=== PATIENT | male | born 1960 | race African-American/Black ===

== ENCOUNTER 2020-08-12 11:20 | Inpatient (IN) ==
[2020-08-12] MEDS ORDERED: Morphine Sulfate 2 MG/ML SYRINGE IVP ONE (11:35)
[2020-08-12] MEDS ORDERED: 0.9 % Sodium Chloride 1,000 ML IVC ONE (11:35)
[2020-08-12] MEDS ORDERED: Ondansetron 4 MG/2 ML VIAL IVP ONE (11:35)
[2020-08-12 11:57] LABS: Immature Granulocytes % 0.3 % (0-4)
[2020-08-12 11:58] LABS: Basophils % 0.2 %; Eosinophils % 0.4 %; Hematocrit 43.3 % (37.5-50.1); Hemoglobin 12.9 g/dL (12.9-16.9); Immature Platelets 10.9 % (1.1-6.1); Lymphocytes # 2.2 K/mcL (0.6-4.6); Lymphocytes % 20.6 %; Mean Corpuscular HGB Conc 29.8 g/dL (31.6-35.5); Mean Corpuscular Hemoglobin 20.3 pg (28.0-33.3); Mean Corpuscular Volume 68.2 fL (83.0-100.0); Monocytes % 8.9 %; Neutrophils # 7.5 K/mcL (1.6-8.9); Platelet Count 177 K/mcL (140-400); Red Blood Count 6.35 M/mcL (4.19-5.50); Segmented Neutrophils % 69.6 %; White Blood Count 10.8 K/mcL (4.3-11.1)
[2020-08-12 12:14] LABS: Platelet Estimate Normal (Normal)
[2020-08-12 13:14] LABS: Alanine Aminotransferase 65 Units/L (7-52); Albumin 4.6 g/dL (3.5-5.7); Albumin/Globulin Ratio 1.1 (1.1-2.2); Alkaline Phosphatase 85 Units/L (34-104); Amylase 64 Units/L (29-103); Aspartate Amino Transferase 56 Units/L (13-39); BUN/Creatinine Ratio 18 (6-26); Bilirubin,Indirect 0.5 mg/dL (0.0-1.0); Bilirubin,Total 0.5 mg/dL (0.3-1.0); Blood Urea Nitrogen 20 mg/dL (8-23); Carbon Dioxide 23 mEq/L (23-29); Chloride 103 mEq/L (98-107); Globulin 4.1 g/dL (2.4-3.5); Glucose 109 mg/dL (70-105); Lipase 9 Units/L (11-82); Osmolality,Calculated 293 (280-300); Potassium 4.5 mEq/L (3.5-5.1); Sodium 140 mEq/L (136-145); Total Protein 8.7 g/dL (6.4-8.9); eGFR For African Americans > 60 (> 60); eGFR For Non-African Americans > 60 (> 60)
[2020-08-12] MEDS ORDERED: Isovue-370 500 ML BOTTLE IVP ONE (13:27)
[2020-08-12 13:47] LABS: Amorphous Sediment,Urine Few per hpf (None-Few); Bacteria,Urine Few per hpf (None-Few); Bilirubin,Urine Negative (Negative); Blood,Urine Negative (Negative); Clarity,Urine Clear (Clear); Color,Urine Yellow (Yellow); Glucose,Urine (UA) Normal (Normal); Hyaline Casts,Urine Few per lpf (None Seen); Ketones,Urine Trace mg/dL (Negative); Leukocyte Esterase,Urine Small (Negative); Mucus,Urine Few per lpf (None-Few); Nitrite,Urine Negative (Negative); PH,Urine 7.5 pH Units (5.0-8.0); Protein,Urine 70 mg/dL (Neg-Trace); RBC,Urine 0-3 per hpf (0-3); Specific Gravity,Urine > 1.030 (1.010-1.025); Squamous Epithelial Cell,Urine Few per hpf (None-Few); Urobilinogen,Urine Normal (Normal)
[2020-08-12] MEDS ORDERED: *HR* HYDROmorphone (PF) 1 MG/ML SYRINGE IVP ONE (13:54)
[2020-08-12] MEDS ORDERED: Pantoprazole 40 MG VIAL IVP ONE (14:18)
[2020-08-12] MEDS ORDERED: Mag Hydrox/Al Hydrox/Simeth 30 ML UDC PO PRN (15:33)
[2020-08-12] MEDS ORDERED: Naloxone 0.4 MG/ML INJ IVP PRN (15:33)
[2020-08-12] MEDS ORDERED: Ondansetron 4 MG/2 ML VIAL IVP PRN (15:33)
[2020-08-12] MEDS ORDERED: Dextrose Gel 15 GM/37.5 ML TUBE PO PRN ×2 (15:39)
[2020-08-12] MEDS ORDERED: *HR* Dextrose 50 % in Water (Vial) 50 ML VIAL IVP PRN (15:39)
[2020-08-12] MEDS ORDERED: D5% in Water 1,000 ML IVC PRN (15:39)
[2020-08-12] MEDS ORDERED: Ringers Solution, Lactated 1,000 ML IVC SCH (15:45)
[2020-08-12] MEDS ORDERED: hydrOXYzine pamoate 25 MG CAPSULE PO PRN (16:27)
[2020-08-12] MEDS: Insulin LISPRO 300 UNITS/3 ML VIAL SQ SCH (17:04)
[2020-08-12] MEDS: Budesonide/Formoterol 80/4.5 1 PUFF INH IH SCH (20:57)
[2020-08-13 01:15] LABS: Hematocrit 39.1 % (37.5-50.1); Mean Corpuscular HGB Conc 28.9 g/dL (31.6-35.5); Mean Corpuscular Hemoglobin 20.1 pg (28.0-33.3); Segmented Neutrophils % 66.8 %
[2020-08-13 01:17] LABS: Basophils % 0.1 %; Eosinophils # 0.1 K/mcL (0.0-0.6); Eosinophils % 0.8 %; Hemoglobin 11.3 g/dL (12.9-16.9); Immature Granulocytes % 0.3 % (0-4); Immature Platelets 11.3 % (1.1-6.1); Lymphocytes # 1.8 K/mcL (0.6-4.6); Lymphocytes % 21.2 %; Mean Corpuscular Volume 69.6 fL (83.0-100.0); Monocytes # 0.9 K/mcL (0.0-1.3); Monocytes % 10.8 %; Neutrophils # 5.8 K/mcL (1.6-8.9); Platelet Count 157 K/mcL (140-400); Red Blood Count 5.62 M/mcL (4.19-5.50); Red Cell Distribution Width 17.8 % (11.5-14.5); White Blood Count 8.7 K/mcL (4.3-11.1)
[2020-08-13 01:18] LABS: INR 1.2; Prothrombin Time 13.9 Seconds (9.4-12.1)
[2020-08-13 01:34] LABS: BUN/Creatinine Ratio 16 (6-26); Blood Urea Nitrogen 17 mg/dL (8-23); Calcium 9.2 mg/dL (8.6-10.3); Carbon Dioxide 28 mEq/L (23-29); Chloride 104 mEq/L (98-107); Glucose 125 mg/dL (70-105); Osmolality,Calculated 291 (280-300); Potassium 3.8 mEq/L (3.5-5.1); Sodium 139 mEq/L (136-145); eGFR For African Americans > 60 (> 60); eGFR For Non-African Americans > 60 (> 60)
[2020-08-13 02:23] LABS: Platelet Estimate Normal (Normal)
[2020-08-13] MEDS ORDERED: *HR* Promethazine 25 MG/ML VIAL IVP ONE (04:03)
[2020-08-13 04:22] LABS: Estimated Average Glucose 146 mg/dl
[2020-08-13] MEDS: Budesonide/Formoterol 80/4.5 1 PUFF INH IH SCH ×2 (07:34→20:13)
[2020-08-13] MEDS: Insulin LISPRO 300 UNITS/3 ML VIAL SQ SCH ×3 (07:38→16:43)
[2020-08-13] MEDS ORDERED: Pantoprazole 40 MG VIAL IVP SCH (09:00)
[2020-08-13] MEDS ORDERED: Famotidine 20 MG/2 ML VIAL IVP ONE (09:35)
[2020-08-13] MEDS ORDERED: *HR* Propofol 200 MG/20 ML VIAL IVP ONE (10:24)
[2020-08-13] MEDS ORDERED: Lidocaine -MPF 2% 2 ML VIAL ONE (10:24)
[2020-08-13] MEDS ORDERED: *HR* PHENYLEPHRINE 1,000 MCG/10 ML SYRINGE IVP ONE (14:23)
[2020-08-13] MEDS ORDERED: Dexamethasone 4 MG/ML VIAL ONE (14:23)
[2020-08-13] MEDS: Magic Mouthwash 10 ML UD Cup PO SCH (17:09)
[2020-08-13] MEDS: Pantoprazole 40 MG VIAL IVP SCH (21:25)
[2020-08-14 01:20] LABS: Basophils % 0.2 %; Hemoglobin 10.5 g/dL (12.9-16.9); Immature Granulocytes % 0.2 % (0-4); Segmented Neutrophils % 52.9 %
[2020-08-14 01:22] LABS: Eosinophils # 0.1 K/mcL (0.0-0.6); Eosinophils % 2.2 %; Hematocrit 35.4 % (37.5-50.1); Immature Platelets 9.5 % (1.1-6.1); Lymphocytes # 1.8 K/mcL (0.6-4.6); Lymphocytes % 32.5 %; Mean Corpuscular HGB Conc 29.7 g/dL (31.6-35.5); Mean Corpuscular Hemoglobin 20.7 pg (28.0-33.3); Mean Corpuscular Volume 69.7 fL (83.0-100.0); Monocytes # 0.7 K/mcL (0.0-1.3); Neutrophils # 2.9 K/mcL (1.6-8.9); Platelet Count 139 K/mcL (140-400); Red Blood Count 5.08 M/mcL (4.19-5.50); White Blood Count 5.5 K/mcL (4.3-11.1)
[2020-08-14 01:38] LABS: BUN/Creatinine Ratio 13 (6-26); Blood Urea Nitrogen 13 mg/dL (8-23); Calcium 8.4 mg/dL (8.6-10.3); Carbon Dioxide 23 mEq/L (23-29); Chloride 107 mEq/L (98-107); Glucose 93 mg/dL (70-105); Osmolality,Calculated 284 (280-300); Potassium 3.7 mEq/L (3.5-5.1); Sodium 137 mEq/L (136-145); eGFR For African Americans > 60 (> 60); eGFR For Non-African Americans > 60 (> 60)
[2020-08-14 02:01] LABS: Platelet Estimate Normal (Normal)
[2020-08-14] MEDS: Budesonide/Formoterol 80/4.5 1 PUFF INH IH SCH ×2 (07:21→19:46)
[2020-08-14] MEDS: Pantoprazole 40 MG VIAL IVP SCH ×2 (09:00→21:17)
[2020-08-14] MEDS: Magic Mouthwash 10 ML UD Cup PO SCH ×3 (09:01→16:11)
[2020-08-14] MEDS: Insulin LISPRO 300 UNITS/3 ML VIAL SQ SCH ×3 (09:01→17:32)
[2020-08-14] MEDS: Fluticasone Propionate Nasal 50 MCG/SPRAY BOTTLE NS SCH (09:02)
[2020-08-14] MEDS ORDERED: 0.9 % Sodium Chloride 1,000 ML IVC SCH (13:00)
[2020-08-14] MEDS: Sucralfate 1 GM TABLET PO SCH (16:11)
[2020-08-15 07:01] VITALS: BP 140/83
[2020-08-15] MEDS: Budesonide/Formoterol 80/4.5 1 PUFF INH IH SCH (07:40)
[2020-08-15 08:27] LABS: Hemoglobin 10.5 g/dL (12.9-16.9)
[2020-08-15 08:29] LABS: Basophils % 0.2 %; Eosinophils # 0.1 K/mcL (0.0-0.6); Eosinophils % 2.4 %; Hematocrit 35.9 % (37.5-50.1); Immature Granulocytes % 0.2 % (0-4); Immature Platelets 9.5 % (1.1-6.1); Lymphocytes # 1.5 K/mcL (0.6-4.6); Lymphocytes % 30.5 %; Mean Corpuscular HGB Conc 29.2 g/dL (31.6-35.5); Mean Corpuscular Hemoglobin 20.5 pg (28.0-33.3); Monocytes # 0.6 K/mcL (0.0-1.3); Monocytes % 12.4 %; Neutrophils # 2.7 K/mcL (1.6-8.9); Platelet Count 150 K/mcL (140-400); Red Blood Count 5.13 M/mcL (4.19-5.50); Red Cell Distribution Width 16.8 % (11.5-14.5); Segmented Neutrophils % 54.3 %; White Blood Count 4.9 K/mcL (4.3-11.1)
[2020-08-15] MEDS: Insulin LISPRO 300 UNITS/3 ML VIAL SQ SCH (08:38)
[2020-08-15 08:46] LABS: BUN/Creatinine Ratio 11 (6-26); Blood Urea Nitrogen 11 mg/dL (8-23); Calcium 8.6 mg/dL (8.6-10.3); Carbon Dioxide 25 mEq/L (23-29); Chloride 107 mEq/L (98-107); Glucose 100 mg/dL (70-105); Osmolality,Calculated 285 (280-300); Sodium 138 mEq/L (136-145); eGFR For African Americans > 60 (> 60); eGFR For Non-African Americans > 60 (> 60)
[2020-08-15] MEDS: Sucralfate 1 GM TABLET PO SCH (08:47)
[2020-08-15] MEDS: Pantoprazole 40 MG VIAL IVP SCH (08:47)
[2020-08-15] MEDS: Magic Mouthwash 10 ML UD Cup PO SCH (08:48)
[2020-08-15] MEDS: Fluticasone Propionate Nasal 50 MCG/SPRAY BOTTLE NS SCH (08:51)
== END 2020-08-15 13:10 | disposition home or self-care (01) | DRG 392 ==
LOC: EMEROOARM 11:20 → 3BNU 11:20 → SUATTDRO 15:13 → 3BNU 16:00
PROVIDERS: ADMIT Internal Medicine; ATTEND Internal Medicine
PROC: ENDOEBX (2020-08-13 10:30)